=== PATIENT | male | born 1960 | race African-American/Black ===

== ENCOUNTER 2017-06-13 13:32 | Emergency (ER) | payer OTHER ==
[~2017-06-13] VITALS: Ht 177.8 cm; Wt 80.0 kg
[2017-06-13 13:47] VITALS: BP 128/77
== END 2017-06-13 17:39 | disposition left against medical advice (07) ==
LOC: ER 13:32
DX: R10.9 Unspecified abdominal pain (principal); Z53.21 Procedure and treatment not carried out due to patient leaving prior to being seen by health care provider

== ENCOUNTER 2018-08-17 07:46 | Emergency (ER) | payer MEDICAID ==
[~2018-08-17] VITALS: Ht 185.4 cm; Wt 77.0 kg
[2018-08-17] MEDS ORDERED: SODIUM CHLORIDE 0.9% 1,000 ML IV ONE (08:09)
[2018-08-17] MEDS ORDERED: ONDANSETRON HCL 4MG/2ML INJ IV STA (08:09)
[2018-08-17] MEDS ORDERED: KETOROLAC 30MG/ML VIAL IV STA (08:09)
[2018-08-17 08:32] LABS: CHLORIDE 106 mEq/L (98-107)
[2018-08-17 08:34] LABS: BASOPHILS % 0.7 % (0.0-2.0); EOSINOPHILS % 3.5 % (0.0-5.0); HEMATOCRIT. 36.9 % (42.0-52.0); HEMOGLOBIN. 12.3 g/dL (14.0-18.0); LYMPHOCYTES % 18.6 % (20.0-50.0); MEAN CORPUSCULAR HEMOGLOBIN 31.6 pg (28.0-32.0); MEAN CORPUSCULAR VOLUME 94.3 fL (80.0-94.0); MEAN PLATELET VOLUME 7.2 fl (7.4-10.4); MONOCYTES % 10.5 % (2.0-8.0); NEUTROPHILS % 66.7 % (40.0-76.0); PLATELET 285 x1000/uL (130-400); RED BLOOD CELL COUNT 3.91 mill/uL (4.7-6.1); RED CELL DISTRIBUTION WIDTH 14.1 % (11.6-14.6)
[2018-08-17 08:38] LABS: ETHANOL BLOOD < 10 mg/dL
[2018-08-17] MEDS ORDERED: KETOROLAC 15MG/ML VIAL IV NR (09:30)
[2018-08-17 10:11] VITALS: BP 125/80
== END 2018-08-17 10:51 | disposition home or self-care (01) ==
LOC: ER 07:46
DX: R10.9 Unspecified abdominal pain (principal); J45.909 Unspecified asthma, uncomplicated; Z98.890 Other specified postprocedural states
CPT/HCPCS: 36415; 74176; 80053; 80320; 83690; 85025; 96374; 96375; 99284; J1885; J2405; J7030; G0480

== ENCOUNTER 2018-08-26 08:25 | Emergency (ER) | payer MEDICAID ==
[~2018-08-26] VITALS: Ht 190.5 cm; Wt 90.0 kg
[2018-08-26 09:40] LABS: EOSINOPHILS % 3.5 % (0.0-5.0); HEMATOCRIT. 37.1 % (42.0-52.0); HEMOGLOBIN. 12.2 g/dL (14.0-18.0); LYMPHOCYTES % 26.2 % (20.0-50.0); MEAN CORPUSCULAR VOLUME 94.2 fL (80.0-94.0); MEAN PLATELET VOLUME 6.9 fl (7.4-10.4); MONOCYTES % 9.6 % (2.0-8.0); NEUTROPHILS % 59.7 % (40.0-76.0); PLATELET 273 x1000/uL (130-400); RED BLOOD CELL COUNT 3.94 mill/uL (4.7-6.1); RED CELL DISTRIBUTION WIDTH 14.5 % (11.6-14.6)
[2018-08-26 09:45] LABS: CHLORIDE 109 mEq/L (98-107)
[2018-08-26 09:53] LABS: INR 1.1
[2018-08-26 10:50] VITALS: BP 110/77
== END 2018-08-26 10:52 | disposition home or self-care (01) ==
LOC: ER 08:25
DX: Z48.03 Encounter for change or removal of drains (principal); J45.909 Unspecified asthma, uncomplicated
CPT/HCPCS: 36415; 80053; 85025; 85610; 99283; Z7610

== ENCOUNTER 2018-10-01 03:21 | Emergency (ER) | payer MEDICAID ==
[~2018-10-01] VITALS: Ht 185.4 cm; Wt 77.0 kg
[2018-10-01 05:35] LABS: BASOPHILS % 1.1 % (0.0-2.0); EOSINOPHILS % 2.3 % (0.0-5.0); HEMATOCRIT. 37.2 % (42.0-52.0); HEMOGLOBIN. 12.4 g/dL (14.0-18.0); LYMPHOCYTES % 32.7 % (20.0-50.0); MEAN CORPUSCULAR HEMOGLOBIN 31.5 pg (28.0-32.0); MEAN CORPUSCULAR VOLUME 94.6 fL (80.0-94.0); MEAN PLATELET VOLUME 7.6 fl (7.4-10.4); MONOCYTES % 9.5 % (2.0-8.0); NEUTROPHILS % 54.4 % (40.0-76.0); PLATELET 175 x1000/uL (130-400); RED BLOOD CELL COUNT 3.93 mill/uL (4.7-6.1); RED CELL DISTRIBUTION WIDTH 15.8 % (11.6-14.6)
[2018-10-01 05:43] LABS: CHLORIDE 109 mEq/L (98-107)
[2018-10-01] MEDS ORDERED: MORPHINE SULFATE 4 MG/ML CPJ (NOT FOR IM USE) IV ONE (06:30)
[2018-10-01 06:39] LABS: CLARITY URINE CLEAR (CLEAR); COLOR URINE YELLOW (YELLOW); KETONES URINE NEGATIVE (NEGATIVE); LEUKOCYTE ESTERASE URINE NEGATIVE (NEGATIVE); NITRITE URINE NEGATIVE (NEGATIVE); OCCULT BLOOD URINE NEGATIVE (NEGATIVE); PH URINE 6.5 (4.5-8.0); PROTEIN URINE NEGATIVE (NEGATIVE); SPECIFIC GRAVITY URINE 1.019 (1.005-1.030)
[2018-10-01 08:56] VITALS: BP 141/67
== END 2018-10-01 09:03 | disposition home or self-care (01) ==
LOC: ER 03:21
DX: R10.9 Unspecified abdominal pain (principal); Z98.890 Other specified postprocedural states
CPT/HCPCS: 36415; 74176; 80053; 81003; 83690; 85025; 96374; 99284; J2270

== ENCOUNTER 2018-10-17 11:41 | Emergency (ER) | payer MEDICAID ==
[~2018-10-17] VITALS: Ht 185.4 cm; Wt 74.0 kg
[2018-10-17 13:18] LABS: PROTHROMBIN TIME 10.7 sec (9.6-11.0)
[2018-10-17 13:19] LABS: BASOPHILS % 1.1 % (0.0-2.0); EOSINOPHILS % 2.6 % (0.0-5.0); HEMATOCRIT. 38.3 % (42.0-52.0); HEMOGLOBIN. 12.9 g/dL (14.0-18.0); MEAN CORPUSCULAR HEMOGLOBIN 31.1 pg (28.0-32.0); MEAN CORPUSCULAR VOLUME 92.3 fL (80.0-94.0); MEAN PLATELET VOLUME 7.3 fl (7.4-10.4); MONOCYTES % 10.4 % (2.0-8.0); NEUTROPHILS % 47.9 % (40.0-76.0); PLATELET 238 x1000/uL (130-400); RED BLOOD CELL COUNT 4.15 mill/uL (4.7-6.1); RED CELL DISTRIBUTION WIDTH 15.2 % (11.6-14.6)
[2018-10-17 13:20] LABS: CHLORIDE 112 mEq/L (98-107)
[2018-10-17] MEDS ORDERED: IOHEXOL-300 100 ML BOTTLE ONE (14:27)
[2018-10-17 16:20] LABS: CLARITY URINE CLEAR (CLEAR); COLOR URINE YELLOW (YELLOW); KETONES URINE NEGATIVE (NEGATIVE); LEUKOCYTE ESTERASE URINE NEGATIVE (NEGATIVE); NITRITE URINE NEGATIVE (NEGATIVE); OCCULT BLOOD URINE NEGATIVE (NEGATIVE); PH URINE 5.5 (4.5-8.0); PROTEIN URINE NEGATIVE (NEGATIVE); SPECIFIC GRAVITY URINE 1.059 (1.005-1.030)
[2018-10-17 17:03] VITALS: BP 140/83
== END 2018-10-17 17:12 | disposition home or self-care (01) ==
LOC: ER 12:48
DX: R10.84 Generalized abdominal pain (principal); F17.200 Nicotine dependence, unspecified, uncomplicated; Z98.890 Other specified postprocedural states
CPT/HCPCS: 36415; 71045; 74177; 80053; 81003; 83690; 84484; 85025; 85610; 93005; 99284; Q9967

== ENCOUNTER 2019-08-26 13:52 | Emergency (ER) | payer MEDICAID, OTHER ==
[~2019-08-26] VITALS: Ht 188 cm; Wt 75.0 kg
[2019-08-26 14:06] VITALS: BP 105/78
[2019-08-26] MEDS ORDERED: ACETAMINOPHEN 325MG TABLET PO STA (14:31)
[2019-08-26 15:10] LABS: EOSINOPHILS % 1.8 % (0.0-5.0); HEMATOCRIT. 41.6 % (42.0-52.0); HEMOGLOBIN. 14.3 g/dL (14.0-18.0); LYMPHOCYTES % 32.8 % (20.0-50.0); MEAN CORPUSCULAR HEMOGLOBIN 31.9 pg (28.0-32.0); MEAN CORPUSCULAR VOLUME 93.1 fL (80.0-94.0); MEAN PLATELET VOLUME 7.4 fl (7.4-10.4); MONOCYTES % 7.5 % (2.0-8.0); NEUTROPHILS % 56.9 % (40.0-76.0); PLATELET 207 x1000/uL (130-400); RED BLOOD CELL COUNT 4.46 mill/uL (4.7-6.1); RED CELL DISTRIBUTION WIDTH 15.9 % (11.6-14.6)
[2019-08-26 15:17] LABS: CHLORIDE 106 mEq/L (98-107)
== END 2019-08-26 15:24 | disposition left against medical advice (07) ==
LOC: ER 13:52
DX: R52 Pain, unspecified (principal); R06.02 Shortness of breath; E11.9 Type 2 diabetes mellitus without complications; B20 Human immunodeficiency virus [HIV] disease; E78.00 Pure hypercholesterolemia, unspecified; Z98.890 Other specified postprocedural states
CPT/HCPCS: 36415; 80053; 83880; 84484; 85025; 93005; 99284; 99285

== ENCOUNTER 2019-08-28 00:19 | Inpatient (IN) | payer OTHER ==
[~2019-08-28] VITALS: Ht 185.4 cm; Wt 56.2 kg
[2019-08-28] MEDS ORDERED: ACETAMINOPHEN 325MG TABLET PO STA (00:55)
[2019-08-28 02:25] LABS: BASOPHILS % 1.2 % (0.0-2.0); EOSINOPHILS % 1.7 % (0.0-5.0); HEMATOCRIT. 41.7 % (42.0-52.0); LYMPHOCYTES % 26.9 % (20.0-50.0); MEAN CORPUSCULAR HEMOGLOBIN 31.5 pg (28.0-32.0); MEAN CORPUSCULAR VOLUME 93.4 fL (80.0-94.0); MEAN PLATELET VOLUME 7.7 fl (7.4-10.4); MONOCYTES % 6.6 % (2.0-8.0); NEUTROPHILS % 63.6 % (40.0-76.0); PLATELET 197 x1000/uL (130-400); RED BLOOD CELL COUNT 4.46 mill/uL (4.7-6.1)
[2019-08-28 02:29] LABS: CHLORIDE 108 mEq/L (98-107)
[2019-08-28 02:33] LABS: ETHANOL BLOOD < 10 mg/dL
[2019-08-28 02:37] LABS: CREATINE KINASE 168 IU/L (39-308)
[2019-08-28 03:19] LABS: D-DIMER 0.41 mg/L FEU (<0.50); PROTHROMBIN TIME 10.9 sec (9.6-11.0)
[2019-08-28] MEDS ORDERED: ASPIRIN 325MG EC TABLET PO ONE (04:15)
[2019-08-28 05:23] LABS: CLARITY URINE CLEAR (CLEAR); COLOR URINE YELLOW (YELLOW); KETONES URINE NEGATIVE (NEGATIVE); LEUKOCYTE ESTERASE URINE NEGATIVE (NEGATIVE); NITRITE URINE NEGATIVE (NEGATIVE); OCCULT BLOOD URINE NEGATIVE (NEGATIVE); PH URINE 6.5 (4.5-8.0); PROTEIN URINE TRACE (NEGATIVE); SPECIFIC GRAVITY URINE 1.022 (1.005-1.030)
[2019-08-28 08:30] VITALS: BP 95/70
[2019-08-28 08:35] VITALS: BP 95/70
[2019-08-28] MEDS ORDERED: ONDANSETRON HCL 4MG/2ML INJ IV PRN (09:15)
[2019-08-28] MEDS ORDERED: ACETAMINOPHEN 325MG TABLET PO PRN (09:15)
[2019-08-28 09:24] LABS: *AMPHETAMINES SCREEN URINE NEGATIVE (NEGATIVE); *BARBITURATES SCREEN URINE NEGATIVE (NEGATIVE); *BENZODIAZEPINES SCREEN URINE NEGATIVE (NEGATIVE); *COCAINE SCREEN URINE PRESUMTIVE POSITIVE (NEGATIVE); METHADONE URINE SCREEN NEGATIVE (NEGATIVE); OPIATES URINE SCREEN NEGATIVE (NEGATIVE)
[2019-08-28 09:25] LABS: CANNABINOID URINE SCREEN NEGATIVE (NEGATIVE); PHENCYCLIDINE URINE SCREEN NEGATIVE (NEGATIVE)
[2019-08-28] MEDS ORDERED: AZITHROMYCIN 500 MG TABLET PO SCH (10:00)
[2019-08-28] MEDS ORDERED: POTASSIUM CHLORIDE 20MEQ TABLET SR PO SCH (10:00)
[2019-08-28] MEDS ORDERED: ENOXAPARIN 40MG/0.4ML SYR SUBCUT SCH (10:00)
== END 2019-08-28 09:45 | disposition left against medical advice (07) | DRG 145 ==
LOC: ER 00:52 → 7WST 04:08 → ENRESERV 07:26
PROVIDERS: ADMIT Internal Medicine; ATTEND Internal Medicine
DX: R06.02 Shortness of breath (principal); B20 Human immunodeficiency virus [HIV] disease; E87.8 Other disorders of electrolyte and fluid balance, not elsewhere classified; D72.819 Decreased white blood cell count, unspecified; E11.9 Type 2 diabetes mellitus without complications; E87.6 Hypokalemia; Z20.828 Contact with and (suspected) exposure to other viral communicable diseases; F14.90 Cocaine use, unspecified, uncomplicated; Z60.2 Problems related to living alone; K44.9 Diaphragmatic hernia without obstruction or gangrene; Z91.14 Patient's other noncompliance with medication regimen
CPT/HCPCS: 36415; 71045; 80053; 80305; 80320; 81003; 82550; 82728; 82962; 83036; 83605; 83615; 83880; 84145; 84484; 85025; 85379; 85384; 86140; 87635; 87804; 93005; 99291; G0480

== ENCOUNTER 2019-09-15 11:47 | Emergency (ER) | payer OTHER ==
[~2019-09-15] VITALS: Ht 185.4 cm; Wt 85.0 kg
[2019-09-15] MEDS ORDERED: MORPHINE SULFATE 4 MG/ML CPJ (NOT FOR IM USE) IV STA (12:14)
[2019-09-15] MEDS ORDERED: SODIUM CHLORIDE 0.9% 1,000 ML IV ONE (12:14)
[2019-09-15] MEDS ORDERED: ONDANSETRON HCL 4MG/2ML INJ IV STA (12:14)
[2019-09-15] MEDS ORDERED: ASPIRIN 81MG TABLET PO ONE (12:15)
[2019-09-15] MEDS ORDERED: NITROGLYCERIN OINT 1GM/INCH UDPKT TD ONE (12:15)
[2019-09-15 12:56] LABS: BASOPHILS % 0.3 % (0.0-2.0); EOSINOPHILS % 2.6 % (0.0-5.0); HEMATOCRIT. 39.4 % (42.0-52.0); HEMOGLOBIN. 13.3 g/dL (14.0-18.0); LYMPHOCYTES % 34.4 % (20.0-50.0); MEAN CORPUSCULAR HEMOGLOBIN 31.5 pg (28.0-32.0); MEAN CORPUSCULAR VOLUME 93.1 fL (80.0-94.0); MEAN PLATELET VOLUME 7.6 fl (7.4-10.4); MONOCYTES % 9.4 % (2.0-8.0); NEUTROPHILS % 53.3 % (40.0-76.0); PLATELET 213 x1000/uL (130-400); RED BLOOD CELL COUNT 4.23 mill/uL (4.7-6.1); RED CELL DISTRIBUTION WIDTH 15.3 % (11.6-14.6)
[2019-09-15 13:01] LABS: CHLORIDE 109 mEq/L (98-107)
[2019-09-15 13:06] LABS: ETHANOL BLOOD < 10 mg/dL
[2019-09-15 15:19] LABS: CLARITY URINE CLEAR (CLEAR); COLOR URINE YELLOW (YELLOW); KETONES URINE TRACE (NEGATIVE); LEUKOCYTE ESTERASE URINE TRACE (NEGATIVE); NITRITE URINE NEGATIVE (NEGATIVE); OCCULT BLOOD URINE NEGATIVE (NEGATIVE); PROTEIN URINE TRACE (NEGATIVE); SPECIFIC GRAVITY URINE 1.027 (1.005-1.030)
[2019-09-15] MEDS ORDERED: ACETAMINOPHEN 325MG TABLET PO PRN (15:30)
[2019-09-15] MEDS ORDERED: ONDANSETRON HCL 4MG/2ML INJ IV PRN (15:30)
[2019-09-15] MEDS ORDERED: CLONIDINE 0.1MG TABLET PO PRN (15:30)
[2019-09-15] MEDS ORDERED: IPRATROPIUM/ALBUTEROL 0.5-3(2.5)MG/3ML NEB HHN PRN (15:30)
[2019-09-15] MEDS ORDERED: MAGNESIUM/ALUMINUM HYDROXIDE/SIMETHICONE 30ML UDC PO PRN ×2 (15:30→17:00)
[2019-09-15] MEDS ORDERED: HYDROCODONE/ACETAMINOPHEN 5/325MG TABLET PO PRN (15:30)
[2019-09-15] MEDS ORDERED: DOCUSATE SODIUM 100MG CAPSULE PO PRN (15:30)
[2019-09-15 15:37] LABS: *AMPHETAMINES SCREEN URINE PRESUMTIVE POSITIVE (NEGATIVE); *BARBITURATES SCREEN URINE NEGATIVE (NEGATIVE); *BENZODIAZEPINES SCREEN URINE NEGATIVE (NEGATIVE)
[2019-09-15 15:38] LABS: *COCAINE SCREEN URINE PRESUMTIVE POSITIVE (NEGATIVE); CANNABINOID URINE SCREEN NEGATIVE (NEGATIVE); METHADONE URINE SCREEN NEGATIVE (NEGATIVE); OPIATES URINE SCREEN PRESUMTIVE POSITIVE (NEGATIVE); PHENCYCLIDINE URINE SCREEN NEGATIVE (NEGATIVE)
[2019-09-15] MEDS ORDERED: ENOXAPARIN 40MG/0.4ML SYR SUBCUT SCH (16:00)
[2019-09-15] MEDS ORDERED: BLOOD SUGAR DIAGNOSTIC STRIP TEST SCH (17:00)
[2019-09-15] MEDS ORDERED: DEXTROSE 50% WATER 50ML SYRINGE IV PRN ×2 (17:00)
[2019-09-15] MEDS ORDERED: INSULIN LISPRO 100 UNITS/ML SUBCUT SCH (18:20)
[2019-09-15 19:36] VITALS: BP 112/72
[2019-09-15] MEDS ORDERED: ATORVASTATIN CALCIUM 10MG TABLET PO SCH (21:00)
[2019-09-16] MEDS ORDERED: PANTOPRAZOLE SODIUM 40 MG/VIAL IV SCH (09:00)
[2019-09-16] MEDS ORDERED: CLOPIDOGREL 75MG TABLET PO SCH (09:00)
[2019-09-16] MEDS ORDERED: ASPIRIN 325MG EC TABLET PO SCH (09:00)
== END 2019-09-15 20:19 | disposition left against medical advice (07) ==
LOC: ER 11:47 → EDBEDREQTM 13:09 → EDBEDREQ 13:09 → ER 20:19 → CANBEDREQ 20:39
DX: R07.2 Precordial pain (principal); I11.9 Hypertensive heart disease without heart failure; F14.10 Cocaine abuse, uncomplicated; F15.10 Other stimulant abuse, uncomplicated; E44.1 Mild protein-calorie malnutrition; I25.2 Old myocardial infarction; E11.9 Type 2 diabetes mellitus without complications; E87.8 Other disorders of electrolyte and fluid balance, not elsewhere classified; R06.02 Shortness of breath; R05 Cough; Z95.5 Presence of coronary angioplasty implant and graft; Z91.14 Patient's other noncompliance with medication regimen
CPT/HCPCS: 36415; 71045; 80053; 80305; 80320; 81003; 83036; 83690; 83880; 84484; 85025; 93005; 93970; 96372; 96374; 96375; 99285; J1650; J2270; J2405; J7030; Z7610; G0480

== ENCOUNTER 2020-02-03 16:01 | Emergency (ER) | payer OTHER ==
[~2020-02-03] VITALS: Ht 185.4 cm; Wt 72.0 kg
[2020-02-03 22:02] VITALS: BP 130/87
[2020-02-03] MEDS ORDERED: ASPIRIN 81MG TABLET PO ONE (22:15)
== END 2020-02-04 00:02 | disposition left against medical advice (07) ==
LOC: ER 16:01
DX: R07.89 Other chest pain (principal); I25.10 Atherosclerotic heart disease of native coronary artery without angina pectoris; Z53.29 Procedure and treatment not carried out because of patient's decision for other reasons; E11.9 Type 2 diabetes mellitus without complications; I10 Essential (primary) hypertension; I25.2 Old myocardial infarction; F17.290 Nicotine dependence, other tobacco product, uncomplicated; F14.10 Cocaine abuse, uncomplicated
CPT/HCPCS: 71045; 93005; 99283; Z7610

== ENCOUNTER 2020-03-02 18:38 | Emergency (ER) | payer OTHER ==
[~2020-03-02] VITALS: Ht 180.3 cm; Wt 71.0 kg
[2020-03-02 18:44] VITALS: BP 128/80
[2020-03-02] MEDS ORDERED: ASPIRIN 81MG TABLET PO ONE (19:15)
[2020-03-02] MEDS ORDERED: NITROGLYCERIN 0.4MG TABLET SL SL PRN (19:15)
[2020-03-02 19:29] LABS: HEMATOCRIT. 43.1 % (42.0-52.0); HEMOGLOBIN. 14.2 g/dL (14.0-18.0); MEAN CORPUSCULAR HEMOGLOBIN 30.8 pg (28.0-32.0); MEAN CORPUSCULAR VOLUME 93.3 fL (80.0-94.0); MEAN PLATELET VOLUME 7.7 fl (7.4-10.4); PLATELET 213 x1000/uL (130-400); RED BLOOD CELL COUNT 4.61 mill/uL (4.7-6.1); RED CELL DISTRIBUTION WIDTH 15.5 % (11.6-14.6)
[2020-03-02 19:34] LABS: CHLORIDE 111 mEq/L (98-107)
[2020-03-02 19:38] LABS: ETHANOL BLOOD < 10 mg/dL
[2020-03-02 20:07] LABS: PLATELET ESTIMATE NORMAL
== END 2020-03-02 23:15 | disposition left against medical advice (07) ==
LOC: ER 18:38 → CANBEDREQ 03-03 09:35
DX: I20.0 Unstable angina (principal); R07.89 Other chest pain; I10 Essential (primary) hypertension; I25.2 Old myocardial infarction; F17.210 Nicotine dependence, cigarettes, uncomplicated; Z98.61 Coronary angioplasty status
CPT/HCPCS: 36415; 71045; 80053; 80320; 83880; 84484; 85025; 93005; 99285; G0480

== ENCOUNTER 2020-04-27 20:06 | Emergency (ER) | payer OTHER ==
[~2020-04-27] VITALS: Ht 185.4 cm; Wt 69.0 kg
[2020-04-27] MEDS ORDERED: IBUPROFEN 400MG TABLET PO ONE (20:45)
[2020-04-27] MEDS ORDERED: BACITRACIN ZINC OINT UDPKT TOP ONE (20:45)
[2020-04-27 21:45] VITALS: BP 135/85
== END 2020-04-27 21:45 | disposition home or self-care (01) ==
LOC: ER 20:06
DX: T81.31XA Disruption of external operation (surgical) wound, not elsewhere classified, initial encounter (principal); S30.811A Abrasion of abdominal wall, initial encounter; I25.2 Old myocardial infarction; B20 Human immunodeficiency virus [HIV] disease; I25.10 Atherosclerotic heart disease of native coronary artery without angina pectoris; Y83.8 Other surgical procedures as the cause of abnormal reaction of the patient, or of later complication, without mention of misadventure at the time of the procedure; Y92.9 Unspecified place or not applicable; Z98.890 Other specified postprocedural states
CPT/HCPCS: 93005; 99283

== ENCOUNTER 2020-05-16 01:48 | Emergency (ER) | payer MEDICAID, OTHER ==
[~2020-05-16] VITALS: Ht 182.9 cm; Wt 70.9 kg
[2020-05-16 02:44] LABS: BASOPHILS % 0.8 % (0.0-2.0); CHLORIDE 108 mEq/L (98-107); EOSINOPHILS % 2.1 % (0.0-5.0); HEMATOCRIT. 42.3 % (42.0-52.0); HEMOGLOBIN. 14.1 g/dL (14.0-18.0); LYMPHOCYTES % 31.2 % (20.0-50.0); MEAN CORPUSCULAR HEMOGLOBIN 30.7 pg (28.0-32.0); MEAN PLATELET VOLUME 7.5 fl (7.4-10.4); MONOCYTES % 7.6 % (2.0-8.0); NEUTROPHILS % 58.3 % (40.0-76.0); PLATELET 218 x1000/uL (130-400); RED BLOOD CELL COUNT 4.59 mill/uL (4.7-6.1); RED CELL DISTRIBUTION WIDTH 14.6 % (11.6-14.6)
[2020-05-16] MEDS ORDERED: SODIUM CHLORIDE 0.9% 1,000 ML IV ONE (03:15)
[2020-05-16] MEDS ORDERED: IOHEXOL-350 100 ML BOTTLE ONE (06:36)
[2020-05-16 09:10] VITALS: BP 156/86
== END 2020-05-16 09:38 | disposition short-term general hospital (02) ==
LOC: ER 01:48 → CANBEDREQ 11:36
DX: R07.89 Other chest pain (principal); I10 Essential (primary) hypertension; E11.9 Type 2 diabetes mellitus without complications; F14.10 Cocaine abuse, uncomplicated
CPT/HCPCS: 36415; 71045; 71275; 80053; 83880; 84484; 85025; 85379; 93005; 96360; 99285; J7030; Q9967; Z7610

== ENCOUNTER 2020-07-20 21:02 | Emergency (ER) | payer MEDICAID ==
[~2020-07-20] VITALS: Ht 188 cm; Wt 82.0 kg
[2020-07-20 21:37] LABS: HEMATOCRIT. 40.1 % (42.0-52.0); HEMOGLOBIN. 13.8 g/dL (14.0-18.0); MEAN CORPUSCULAR HEMOGLOBIN 31.2 pg (28.0-32.0); MEAN CORPUSCULAR VOLUME 90.6 fL (80.0-94.0); MEAN PLATELET VOLUME 7.6 fl (7.4-10.4); PLATELET 272 x1000/uL (130-400); RED BLOOD CELL COUNT 4.43 mill/uL (4.7-6.1); RED CELL DISTRIBUTION WIDTH 13.9 % (11.6-14.6)
[2020-07-20 21:47] LABS: CHLORIDE 107 mEq/L (98-107)
[2020-07-20 22:24] LABS: PLATELET ESTIMATE NORMAL
[2020-07-20] MEDS: AZITHROMYCIN 500 MG in DEXT 5% WATER 250 ML IV SCH (23:15)
[2020-07-20] MEDS ORDERED: CEFTRIAXONE 1 G PREMIX 50 ML IV ONE (23:15)
[2020-07-21] MEDS ORDERED: FUROSEMIDE 40MG TABLET PO SCH
[2020-07-21] MEDS: AZITHROMYCIN 500 MG in DEXT 5% WATER 250 ML IV SCH (00:52)
[2020-07-21 05:00] VITALS: BP 120/71
== END 2020-07-21 06:43 | disposition left against medical advice (07) ==
LOC: ER 21:02 → CANBEDREQ 07-21 06:58
DX: J18.9 Pneumonia, unspecified organism (principal); A41.9 Sepsis, unspecified organism; R09.02 Hypoxemia; I11.0 Hypertensive heart disease with heart failure; I50.9 Heart failure, unspecified; E11.9 Type 2 diabetes mellitus without complications; B20 Human immunodeficiency virus [HIV] disease; F17.200 Nicotine dependence, unspecified, uncomplicated; Z98.890 Other specified postprocedural states
CPT/HCPCS: 36415; 71045; 80053; 83605; 83880; 84145; 84484; 85025; 87040; 93005; 96365; 96366; 96368; 99291; J0456; J0696; J7060; Z7610

== ENCOUNTER 2020-08-24 16:27 | Emergency (ER) | payer MEDICAID ==
[~2020-08-24] VITALS: Ht 188 cm; Wt 98.0 kg
[2020-08-24] MEDS ORDERED: SODIUM CHLORIDE 0.9% 1,000 ML IV ONE (16:45)
[2020-08-24] MEDS ORDERED: ONDANSETRON HCL 4MG/2ML INJ IV STA (16:45)
[2020-08-24] MEDS ORDERED: MORPHINE SULFATE 4 MG/ML CPJ (NOT FOR IM USE) IV ONE (17:00)
[2020-08-24 17:43] LABS: BASOPHILS % 0.8 % (0.0-2.0); EOSINOPHILS % 1.8 % (0.0-5.0); HEMATOCRIT. 38.4 % (42.0-52.0); HEMOGLOBIN. 13.1 g/dL (14.0-18.0); LYMPHOCYTES % 31.8 % (20.0-50.0); MEAN CORPUSCULAR HEMOGLOBIN 30.2 pg (28.0-32.0); MEAN CORPUSCULAR VOLUME 88.4 fL (80.0-94.0); MEAN PLATELET VOLUME 7.5 fl (7.4-10.4); MONOCYTES % 8.7 % (2.0-8.0); NEUTROPHILS % 56.9 % (40.0-76.0); PLATELET 256 x1000/uL (130-400); RED BLOOD CELL COUNT 4.34 mill/uL (4.7-6.1)
[2020-08-24 17:48] LABS: CHLORIDE 108 mEq/L (98-107)
[2020-08-24] MEDS ORDERED: FAMO-135 MT (19:02)
[2020-08-24 19:28] LABS: CLARITY URINE CLEAR (CLEAR); COLOR URINE YELLOW (YELLOW); KETONES URINE NEGATIVE (NEGATIVE); LEUKOCYTE ESTERASE URINE NEGATIVE (NEGATIVE); NITRITE URINE NEGATIVE (NEGATIVE); OCCULT BLOOD URINE TRACE (NEGATIVE); PH URINE 5.5 (4.5-8.0); PROTEIN URINE NEGATIVE (NEGATIVE); SPECIFIC GRAVITY URINE 1.023 (1.005-1.030)
[2020-08-24] MEDS ORDERED: CIPR-263 MT (19:57)
[2020-08-24 20:23] VITALS: BP 121/76
== END 2020-08-24 20:28 | disposition home or self-care (01) ==
LOC: ER 16:27
DX: R10.9 Unspecified abdominal pain (principal); N39.0 Urinary tract infection, site not specified; E11.9 Type 2 diabetes mellitus without complications; I10 Essential (primary) hypertension; I25.2 Old myocardial infarction; B20 Human immunodeficiency virus [HIV] disease; I25.10 Atherosclerotic heart disease of native coronary artery without angina pectoris; Z98.890 Other specified postprocedural states
CPT/HCPCS: 36415; 74176; 80053; 81003; 83690; 85025; 93005; 96361; 96374; 96375; 99285; J2270; J2405; J7030; Z7610